=== PATIENT | male | born 1935 | race Hispanic/Latino ===

== ENCOUNTER 2016-12-28 06:11 | Day surgery (SDC) | payer MEDICARE, OTHER ==
--- NOTE | 2016-12-22 11:58 | Anesthesia Consultation ---
Anesthesia Consult and Med Hx Date of service: 12/22/16 - Airway Anesthetic Teeth Evaluation: Dentures (upper and lower) ROM Head & Neck: Adequate Mental/Hyoid Distance: Adequate Mallampati Class: Class II Intubation Access Assessment: Probably Good - Pre-Operative Health Status ASA Pre-Surgery Classification: ASA4 Proposed Anesthetic Plan: General, MAC - Pulmonary Hx Smoking: Yes (1 p/d x 25 years, quit 38 years ago) Hx Asthma: Yes (seasonal) Hx Pneumonia: Yes (in ) - Cardiovascular System Hx Hypertension: Yes (30YRS) Hx Coronary Artery Disease: Yes (CABG x 4 2008) Hx Peripheral Vascular Disease: Yes (bilateral carotid endarterectomy 10', 11') - Central Nervous System CVA: Yes (DATE UNKNOWN) Hx Back Pain: Yes Hx Psychiatric Problems: Yes (depression, dementia?) - Endocrine Hx Renal Disease: Yes (11% kidney function) Hx End Stage Renal Disease: Yes - Hematic Hx Anemia: Yes - Additional Comments Anesthesia Medical History Comments: right eye blindness, hearing aids
[~2016-12-28 06:11] MED LIST: ANCEF/STERILE WATER 2 GM/20 ML 2 GM/20 ML SYRINGE IV NR; NACL 0.9% 1000 ML 1,000 ML IV SCH
[2016-12-28] MEDS ORDERED: VERSED IV NR (07:00)
[2016-12-28] MEDS ORDERED: PEPCID IV NR (07:00)
[2016-12-28] MEDS ORDERED: DILAUDID ONE (07:21)
[2016-12-28] MEDS ORDERED: DIPRIVAN 10 MG/ML IV ONE (07:21)
[2016-12-28] MEDS ORDERED: NACL 0.9% 1000 ML IR ONE (09:09)
[2016-12-28] MEDS ORDERED: MARCAINE 0.25% INFILTRATI ONE ×2 (09:09)
[2016-12-28] MEDS ORDERED: HEPARIN 10,000 UNITS/10 ML 1,000 UNIT in NACL 0.9% 250ML 250 ML IR ONE (09:09)
[2016-12-28] MEDS ORDERED: XYLOCAINE MPF 2% ONE (09:13)
[2016-12-28] MEDS ORDERED: NEO SYNEPHRINE ONE (09:14)
[2016-12-28] MEDS ORDERED: NACL 0.9% 100 ML ONE (09:14)
[2016-12-28] MEDS ORDERED: ZOFRAN ONE (09:20)
[2016-12-28] MEDS ORDERED: HEPARIN 10,000 UNITS/10 ML ONE (09:33)
[2016-12-28] MEDS ORDERED: DILAUDID IV PRN (09:34)
[2016-12-28] MEDS ORDERED: ZOFRAN IV PRN (09:34)
--- NOTE | 2016-12-28 09:35 | Anesthesia Day of Surgery ---
Anesthesia Day of Surgery - Day of Surgery Patient Examined: Yes Patient H&P Reviewed: Yes Patient is NPO: Yes Beta Blockers: Yes
--- NOTE | 2016-12-28 10:38 | Post Operative Note ---
Pre-op diagnosis: ESRD Post-op diagnosis: same Findings: Adequate left distal cephalic vein Positive thrill at the end of the procedure Procedure: Left radiocephalic AVF creation Anesthesia: GETA Surgeon: DENISA AUGUST Estimated blood loss: minimal Pathology: none Condition: stable Disposition: PACU
--- NOTE | 2016-12-28 10:40 | Post Anesthesia Evaluation ---
- Post Anesthesia Evaluation Patient Participated: Yes Airway Patent: Yes Stable Respiratory Function: Yes Nausea/Vomiting: No Temp > 96.8F: Yes Pain Manageable: Yes Adequeate Hydration: Yes Anesthesia Complications: No Block Receding Appropriately: Not Applicable Patient on Ventilator: No
--- NOTE | 2016-12-28 10:40 | Short Stay Summary ---
Short Stay Documentation - History H&P: obtained from office - Allergies and Medications Current Medications: Allergies diclofenac Allergy (Verified 12/20/16 15:35) STROKE LIKE SYMPTOMS hyoscyamine Allergy (Verified 12/20/16 15:53) STROKE LIKE SYMPTOMS pregabalin [From Lyrica] Allergy (Verified 12/20/16 15:35) STROKE LIKE SYMPTOMS Home Medications Medication Instructions Recorded Confirmed Last Taken Type ALBUTEROL NEB's [Proventil] 2.5 mg IH TID PRN 12/20/16 12/28/16 Unknown History Ascorbic Acid [Vitamin C] 500 mg PO QDAY 12/20/16 12/28/16 12/27/16 History Aspirin [Adult Low Dose Aspirin EC] 81 mg PO QDAY 12/20/16 12/28/16 12/27/16 History Atenolol [Tenormin] 25 mg PO DAILY 12/20/16 12/28/16 12/28/16 History AtorvaSTATin [Lipitor] 40 mg PO QDAY 12/20/16 12/28/16 12/28/16 History Doxazosin [Cardura] 4 mg PO QDAY 12/20/16 12/28/16 12/28/16 History Escitalopram Oxalate [Lexapro] 5 mg PO QDAY 12/20/16 12/28/16 12/27/16 History Finasteride [Proscar] 5 mg PO QDAY 12/20/16 12/28/16 12/27/16 History Meclizine 5 mg PO QDAY 12/20/16 12/20/16 Unknown History Omeprazole Magnesium [PriLOSEC Otc] 20 mg PO QDAY 12/20/16 12/20/16 Unknown History Ubidecarenone [Coq-10] 100 mg PO QDAY 12/20/16 12/20/16 Unknown History Vit C/Vit E AC/Lut/Mineral 1 1 cap PO QDAY 12/20/16 12/28/16 12/27/16 History [Prosight with Lutein Capsule] hydrALAZINE [Apresoline] 25 mg PO Q8HR 12/20/16 12/28/16 12/28/16 History Active Medications Famotidine (Pepcid) 20 mg IV PREOP NR Stop: 12/28/16 23:59 Last Admin: 12/28/16 07:35 Dose: 20 mg Hydromorphone HCl (Dilaudid) 0.25 mg IV Q10MIN PRN PRN Reason: Pain, Moderate (4-6) Stop: 12/28/16 18:00 Cefazolin Sodium (Ancef/Sterile Water 2 Gm/20 Ml) 2 gm in 20 mls @ 80 mls/hr IV PREOP NR PRN Reason: Protocol Stop: 12/28/16 23:59 Sodium Chloride (Nacl 0.9% 1000 Ml) 1,000 mls @ 42 mls/hr IV DIRECT TYRONE Last Admin: 12/28/16 07:20 Dose: 42 mls/hr Midazolam HCl (Versed) 2 mg IV PREOP NR Stop: 12/28/16 23:59 Last Admin: 12/28/16 07:06 Dose: 2 mg Ondansetron HCl (Zofran) 4 mg IV ONCE PRN PRN Reason: Nausea And Vomiting Stop: 12/28/16 16:00 - Brief post op/procedure progress note Procedure: Attending Provider: DENISA PICKETT Date: 12/28/16 10:36 Initialization Date: 12/28/16 10:36 Pre-op diagnosis: ESRD Post-op diagnosis: same Findings: Adequate left distal cephalic vein Positive thrill at the end of the procedure Procedure: Left radiocephalic AVF creation Anesthesia: GETA Surgeon: DENISA PICKETT Estimated blood loss: minimal Pathology: none Condition: stable Disposition: PACU - Disposition Condition at discharge: Good Disposition: DISCHARGED TO HOME OR SELFCARE Short Stay Discharge Plan Activity: advance as tolerated, other (no heavy lifting with left hand) Weight Bearing Status: Full Weight Bearing Diet: renal Wound: open to air Additional Instructions: See Dr Pickett in 2 weeks Follow up with: YULIYA SANCHEZ [Other] - 7 Days
--- NOTE | 2016-12-28 10:43 | Operative Report ---
Operative Report Operative Report: Preoperative diagnosis: End-stage renal disease/dialysis dependent renal failure. Postop diagnosis: The same Procedure: Left radiocephalic arteriovenous fistula creation. Surgeon: Antonio Pickett MD., RPVI In Service Education Teacher: none Anesthesia: Local with IV sedation EBL: 5 mL IV fluids: 250 mL Findings: Adequate size left radial artery, adequate size left cephalic vein, excellent thrill in the vein after the anastomosis. Disposition: To recovery Indications end-stage renal disease. Procedure in details: Patient was brought to the operating room and laid on the operating room table in supine position. After LMA anesthesia was achieved patient left arm was prepped and draped in the usual sterile fashion. The longitudinal incision between the palpated radial artery and imaged cephalic vein made using #15 blade. Subcutaneous tissue was divided with Bovie electrocautery. The left cephalic vein was dissected free. The cephalic vein was disconnected from the distal cephalic vein and controlled was bulldog. It was heparinized with heparinized saline and dilated well. The left radial artery was then dissected and encircled with Vesseloops proximally and distally. Patient received 2000 units of intravenous heparin. After 3 minutes the artery was occluded with vessel clamps and arteriotomy was made using #11 blade and Friedman scissors. The distal end of the vein was spatulated using Friedman scissors. The anastomosis was created using a running 7-0 Prolene running suture using BV1 needle. Prior to completion the artery was flushed proximally and distally and good forward and back bleeding was seen. Then anastomosis was completed the clamps were removed. The hemostasis was excellent. The strong thrill was appreciated over the cephalic vein. Once it was ascertained that hemostasis was good the skin was closed using 3-0 vicryl and 4-0 monocryl sutures. Patient tolerated procedure well. He was awakened and taken to the recovery room. At the end of the case 1/4 percent Marcaine when infiltrated into the incision for postoperative pain control. All sponge and needle counts were correct.
[2016-12-28 15:42] VITALS: BP 159/68
== END 2016-12-28 12:15 | disposition home or self-care (01) ==
LOC: OR 06:11
PROVIDERS: ATTEND Surgery Vascular Surgery
DX: I12.0 Hypertensive chronic kidney disease with stage 5 chronic kidney disease or end stage renal disease (principal); N18.6 End stage renal disease; D64.9 Anemia, unspecified; I50.9 Heart failure, unspecified; E78.5 Hyperlipidemia, unspecified; F17.210 Nicotine dependence, cigarettes, uncomplicated; J45.909 Unspecified asthma, uncomplicated; I25.10 Atherosclerotic heart disease of native coronary artery without angina pectoris; F03.90 Unspecified dementia, unspecified severity, without behavioral disturbance, psychotic disturbance, mood disturbance, and anxiety; F32.9 Major depressive disorder, single episode, unspecified; Z86.73 Personal history of transient ischemic attack (TIA), and cerebral infarction without residual deficits; Z95.1 Presence of aortocoronary bypass graft; Z98.890 Other specified postprocedural states; Z82.49 Family history of ischemic heart disease and other diseases of the circulatory system; Z80.9 Family history of malignant neoplasm, unspecified; Z87.891 Personal history of nicotine dependence; Z87.01 Personal history of pneumonia (recurrent)
CPT/HCPCS: 36415; 36821; 84132; J0690; J1170; J1644; J2250; J2370; J2405; J2704; J7030; J7050